=== PATIENT | male | born 1950 | race Caucasian/White ===

== ENCOUNTER → 2016-10-24 | Outpatient (CLI) | payer BC ==
--- NOTE | 2016-10-24 18:01 | ECHOCARDIOGRAM REPORT ---
*NOTICE TO RECEIVING LIBERTARIAN AGENCY This information is strictly Confidential and protected under [place] law. [place] law prohibits you from making any further disclosure of this information unless further disclosure is expressly permitted by the written consent of the person to whom it pertains or is authorized by law. A general authorization for the release of medical or other information is not sufficient for this purpose. Hospital accepts no responsibility if the information is made available to any other person, INCLUDING THE PATIENT. Interpretation Summary * Name: NAE MCKEE Study Date: 10/24/2016 12:34 PM BP: 171/85 mmHg * Patient Location: [facility] HR: 81 * : 1950 (M/d/yyyy) Gender: Male Height: 69 in * Age: 66 yrs Ethnicity: [place] Weight: 200 lb * Ordering Physician: Demarco Lester * Referring Physician: Demarco Lester D.O. * Performed By: Phylicia Knapp RDCS * * Reason For Study: AORTIC STENOSIS * BSA: 2.1 m2 * History: AORTIC STENOSIS * -- Conclusions -- * 1. Normal LV size. Mild to moderate concentric LVH. * 2. Normal LV systolic function. LVEF 60-65%. No regional wall motion abnormalities. * 3. Normal RV size and function. * 4. Grade I diastolic dysfunction. * 5. Mild to moderate aortic stenosis (PV 2.5, MPG 14, BOSSMAN 1.4, DI 0.46) * 6. No prior studies for comparison. Procedure Details * A complete two-dimensional transthoracic echocardiogram was performed (2D, M-mode, Doppler and color flow Doppler). Left Ventricle * The left ventricle is grossly normal size. * There is mild concentric left ventricular hypertrophy. * Ejection Fraction = 60-65%. Right Ventricle * The right ventricle is grossly normal size. * The right ventricular systolic function is normal as assessed by tricuspid annular plane systolic excursion (TAPSE) (normal >1.5 cm). Atria * The left atrial size is normal. * Right atrial size is normal. * There is no evidence of atrial septal defect, but resolution does not allow assessment for a patent foramen ovale. Mitral Valve * The mitral valve is grossly normal. * There is no mitral valve stenosis. * Significant mitral regurgitation is absent. Tricuspid Valve * The tricuspid valve is not well visualized, but is grossly normal. * There is no tricuspid stenosis. * Significant tricuspid regurgitation is absent. Aortic Valve * Calcified, thickened, restricted * The aortic valve is trileaflet. * Mild to moderate valvular aortic stenosis. Great Vessels * The aortic root and proximal ascending aorta are normal sized. Pericardium/Pleural * There is no pericardial effusion. Great Vessels * Normal inferior vena cava size and collapsability with sniff indicates a normal right atrial pressure of 3 mmHg Left Ventricular Diastolic Function * Grade I diastolic dysfunction, (abnormal relaxation pattern). MMode 2D Measurements and Calculations IVSd 1.6 cm IVSs 2.1 cm LVIDd 4.0 cm LVIDs 2.9 cm LVPWd 1.4 cm LVPWs 1.9 cm IVS/LVPW 1.2 FS 28.7 % EDV(Teich) 71.6 ml ESV(Teich) 31.7 ml EF(Teich) 55.8 % EDV(cubed) 65.9 ml ESV(cubed) 23.9 ml EF(cubed) 63.8 % % IVS thick 28.4 % % LVPW thick 37.0 % LV mass(C)d 233.9 grams LV mass(C)dI 113.2 grams/m\S\2 LV mass(C)s 245.6 grams LV mass(C)sI 118.9 grams/m\S\2 SV(Teich) 40.0 ml SI(Teich) 19.4 ml/m\S\2 SV(cubed) 42.0 ml SI(cubed) 20.3 ml/m\S\2 Ao root diam 2.1 cm Ao root area 3.6 cm\S\2 LA dimension 3.6 cm LA/Ao 1.7 LVOT diam 2.0 cm LVOT area 3.0 cm\S\2 LVAd ap4 34.7 cm\S\2 LVLd ap4 8.4 cm EDV(MOD-sp4) 118.5 ml EDV(sp4-el) 121.7 ml LVAs ap4 21.2 cm\S\2 LVLs ap4 7.4 cm ESV(MOD-sp4) 53.6 ml ESV(sp4-el) 51.8 ml EF(MOD-sp4) 54.7 % EF(sp4-el) 57.4 % LVAd ap2 31.3 cm\S\2 LVLd ap2 8.6 cm EDV(MOD-sp2) 97.1 ml EDV(sp2-el) 96.7 ml LVAs ap2 20.0 cm\S\2 LVLs ap2 7.2 cm ESV(MOD-sp2) 48.9 ml ESV(sp2-el) 47.0 ml EF(MOD-sp2) 49.7 % EF(sp2-el) 51.4 % LVLd %diff 2.1 % EDV(MOD-bp) 108.7 ml LVLs %diff -2.36 % ESV(MOD-bp) 51.5 ml EF(MOD-bp) 52.7 % SV(MOD-sp4) 64.9 ml SI(MOD-sp4) 31.4 ml/m\S\2 SV(MOD-sp2) 48.2 ml SI(MOD-sp2) 23.4 ml/m\S\2 SV(MOD-bp) 57.2 ml SI(MOD-bp) 27.7 ml/m\S\2 SV(sp4-el) 69.8 ml SI(sp4-el) 33.8 ml/m\S\2 SV(sp2-el) 49.7 ml SI(sp2-el) 24.1 ml/m\S\2 Doppler Measurements and Calculations MV E max wyatt 52.4 cm/sec MV A max wyatt 65.5 cm/sec MV E/A 0.80 MV dec time 0.30 sec Ao V2 max 252.6 cm/sec Ao max PG 26.2 mmHg Ao max PG (full) 22.2 mmHg Ao V2 mean 169.6 cm/sec Ao mean PG 13.6 mmHg Ao mean PG (full) 11.5 mmHg Ao V2 VTI 47.2 cm BOSSMAN(I,A) 1.4 cm\S\2 BOSSMAN(I,D) 1.4 cm\S\2 BOSSMAN(V,A) 1.2 cm\S\2 BOSSMAN(V,D) 1.2 cm\S\2 LV V1 max PG 4.0 mmHg LV V1 mean PG 2.0 mmHg LV V1 max 99.4 cm/sec LV V1 mean 66.6 cm/sec LV V1 VTI 21.8 cm SV(Ao) 169.4 ml SI(Ao) 82.0 ml/m\S\2 SV(LVOT) 66.5 ml SI(LVOT) 32.2 ml/m\S\2
== END | disposition home or self-care (01) ==
LOC: C.CPL 12:22
PROVIDERS: ATTEND Family Medicine
DX: I35.0 Nonrheumatic aortic (valve) stenosis (principal)

== ENCOUNTER 2018-08-10 08:34 | Inpatient (IN) ==
--- NOTE | 2018-07-14 12:20 | Anesthesiology Consultation ---
Date of Service July 14, 2018 Assessment & Plan (1) Encounter for pre-operative examination: Chart Review Chart Review: Acceptable Risk for Surgery and Patient seen in Pre Admission Testing Consults Requested medical (Dr. Lester (07/16/18)) Per clearance request form. Patient is medically cleared for surgery and "is an acceptable candidate for proposed surgery". Patient had new ECHO done on 08/06 which showed that aortic stenosis is "relatively unchanged with negative cardiac ROS". Teaching & Discussion Pre-Anesthesia Teaching/Discussion Notes: Instructed NPO after midnight before surgery, except medications with 15 cc of water. Medication instructions provided according to the PAT guidelines. History Surgery Operation Date: 08/10/18 11:00 Proposed Procedures p Left Total Knee Arthroplasty - Cezar Dagoberto Dick MD Height/Weight Height: 5 ft 9 in Weight: 90.9 kg Allergies Allergy/AdvReac Type Severity Reaction Status Date / Time shellfish derived AdvReac Intermediate Nausea and Verified 08/10/18 09:11 vomiting Medications Home Medications Medication Instructions Recorded Confirmed Last Taken acetaminophen [Tylenol Extra 2 tabs PO Q6H PRN 07/14/18 08/10/18 Unknown Strength] atorvastatin 10 mg PO HS 07/14/18 08/10/18 08/09/18 19:00 hydrochlorothiazide 25 mg PO QAM 07/14/18 08/10/18 08/09/18 08:30 lisinopril 30 mg PO QAM 07/14/18 08/10/18 08/09/18 08:30 naproxen sodium [Aleve] 2 tabs PO BID PRN 07/14/18 08/10/18 07/27/18 ranitidine HCl 150 mg PO QAM 07/14/18 08/10/18 08/10/18 06:45 Active Medications Generic Name Dose Route Start Last Admin Trade Name Freq PRN Reason Stop Dose Admin Celecoxib 200 mg 08/10/18 06:00 08/10/18 09:28 Celebrex PO 08/10/18 18:00 200 mg PREOP THEE Administration Lactated Ringer's 1,000 mls @ 999 mls/hr 08/10/18 06:00 08/10/18 09:32 Lr IV 08/10/18 18:00 15 mls/hr .Q1H1M THEE Infusion Lactated Ringer's 1,000 mls @ 60 mls/hr 08/10/18 06:00 08/10/18 09:28 Lr IV 08/10/18 22:39 Not Given .[id number] THEE Scopolamine 1.5 mg 08/10/18 06:00 08/10/18 09:28 Transderm-Scop TD 08/10/18 18:00 1.5 mg PREOP THEE Administration Past Medical History Medical History Aortic stenosis Moderate (PV 311 cm/s, MPG 16.7 mmHg, BOSSMAN 1.6 cm2) per ECHO on 08/06/18 Hyperlipidemia Hypertension Cardiac murmur GERD (gastroesophageal reflux disease) Osteoarthritis Past Family History Family History Grandfather (Maternal) Family history of diabetes mellitus Past Surgical History Surgical History History of colonoscopy History of arthroscopy RT KNEE History of left knee surgery History of Achilles tendon repair LEFT History of herniorrhaphy LEFT INGUINAL History of tonsillectomy History of tooth extraction Past Anesthesia History No Hx of Anesthesia Complications and No Family Hx of Anesthesia Complications History of PONV No Motion Sickness Screening History of Motion Sickness: No Social History Smoking Status: Former smoker Do You Dip or Chew Tobacco: Yes (1 can every 3-4 days. 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 Plays golf and tennis when the weather is nice. Able to climb FOS. Denies CP or SOB. ) Review of Systems Patient denies chest pain, shortness of breath, dyspnea on exertion, reflux ( controlled by current medications), cough, wheezing, palpitations. +joint pain (left knee) Physical Exam Vital Signs Last Vital Signs Temp 36.8 C 08/10/18 09:15 Pulse 79 08/10/18 09:15 Resp 22 08/10/18 09:15 BP 174/102 H 08/10/18 09:15 Pulse Ox 98 08/10/18 09:15 BP: 125/74 P: 104 R: 20 T: 98.3 SPO2: 98% on RA ENMT Thyromental Distance: > or= 3.5 Finger Breadths (4) Mallampati Class: II Neck normal visual inspection and trachea midline; neck extension not limited Respiratory normal respiratory effort Auscultation: lungs clear to auscultation bilaterally Cardiovascular Rate/Rhythm: regular rate and regular rhythm Heart Sounds: + murmur (3/6 murmur) Vessels: no carotid bruit Neurologic moves all extremities Psychiatric Orientation: alert and oriented x 3 Testing Electrocardiogram Date: 07/14/18 Findings: + NSR @ (90) Echocardiogram Date: 08/06/18 EF: 65-70% LV Function: normal RWMA: + none Other Findings: + LVH (Moderate concentric ) and + diastolic dysfunction (Grade I.) Moderate (PV 311cm/s, MPG 16.7mmHg, BOSSMAN 1.6 cm2) Small mid cavitary gradient Laboratory Results 07/14/18 12:49 07/14/18 12:49 Blood Type B Positive 07/14/18 12:49 Antibody Screen NEGATIVE 07/14/18 12:49 PT 9.6 Seconds (9.0-12.0) 07/14/18 12:49 INR 0.9 (0.9-1.1) 07/14/18 12:49 APTT 24.0 Seconds (21.0-31.0) 07/14/18 12:49
--- NOTE | 2018-07-14 12:21 | PAT Medication Instructions ---
Medication Instructions Date of Service July 14, 2018 Home Medications acetaminophen [Tylenol] 2 tabs PO Q6H as needed atorvastatin 10 mg PO HS hydrochlorothiazide 25 mg PO QAM lisinopril 30 mg PO QAM naproxen sodium [Aleve] 2 tabs PO BID as needed ranitidine HCl 150 mg PO QAM ASK your surgeon for instructions naproxen sodium [Aleve] 2 tabs PO BID as needed DO NOT take the morning of surgery hydrochlorothiazide 25 mg PO QAM lisinopril 30 mg PO QAM Take morning of surgery With a small sip of water, OTHERWISE NOTHING TO EAT OR DRINK AFTER MIDNIGHT: ranitidine HCl 150 mg PO QAM acetaminophen [Tylenol] 2 tabs PO Q6H as needed Take evening before surgery atorvastatin 10 mg PO HS acetaminophen [Tylenol] 2 tabs PO Q6H as needed Other Notes If you have any questions please call us at [phone] or [phone] or [phone] or [phone]
[2018-07-14 13:34] LABS: Basophils # (auto) 0.09 K/uL (0-0.2); Basophils % (auto) 1.4 %; Eosinophils # (auto) 0.22 K/uL (0-0.5); Eosinophils % (auto) 3.5 %; Hematocrit (blood only) 39.4 % (42-52); Hemoglobin 12.9 g/dL (14.0-18.0); Immature Granulocytes # (auto) 0.04 K/uL (0.00-0.02); Immature Granulocytes % (auto) 0.6 %; Lymphocytes # (auto) 1.72 K/uL (1.2-3.4); Mean Corpuscular Hgb Conc 32.7 g/dL (32-36); Mean Corpuscular Volume 76.5 fL (80-100); Mean Platelet Volume 9.7 fL (7.4-10.4); Monocytes # (auto) 0.85 K/uL (0.11-0.59); Monocytes % (auto) 13.4 %; Neutrophils # (auto) 3.44 K/uL (1.4-6.5); Neutrophils % (auto) 54.1 %; Platelet Count 238 K/uL (130-400); RDW Coefficient of Variation 13.9 % (11.5-14.5); RDW Standard Deviation 38.8 fL (36.4-46.3); Red Blood Count 5.15 M/uL (4.7-6.1); White Blood Count 6.36 K/uL (4.8-10.8)
[2018-07-14 13:44] LABS: INR 0.9 (0.9-1.1); Partial Thromboplastin Ratio 0.9; Prothrombin Time 9.6 Seconds (9.0-12.0)
[2018-07-14 13:49] LABS: Albumin Level 3.8 gm/dl (3.4-5.0); BUN Creatinine Ratio 15.2 (10-20); Bilirubin,Total 0.4 mg/dl (0.2-1); Calcium 9.1 mg/dl (8.5-10.1); Est GFR (African American) 102.8; Est GFR (Non-African American) 88.7; Potassium 4.2 mmol/L (3.5-5.1); Total Protein 7.7 gm/dl (6.4-8.2)
[2018-07-14 13:50] LABS: Bilirubin Direct 0.1 mg/dl (0-0.2)
[~2018-08-10 08:34] MED LIST: BUPIVACAINE 0.5 % 5 MG/1 ML PF 10ML VIAL ONE; BUPIVACAINE/EPINEPHRINE 0.5% MPF 1:200,000 30 ML VIAL ONE; CEFAZOLIN 2000MG 2,000 MG/15 ML SYR IV SCH; CeleBREX 200 MG CAP PO SCH; LR 60ML/HR IV SCH; ROPIVACAINE 0.5% HCL/PF 150 MG, BUPIVACAINE 0.5% MPF 30 ML, EPINEPHrine 0.15 MG, Ketoro... INFIL SCH; SCOPOLAMINE 1.5 MG TDSY TD SCH; TRANEXAMIC ACID 1,000 MG **IV Intra-op IV SCH; TRANEXAMIC ACID 1,000 MG **IV Pre-op IV SCH
[2018-08-10] MEDS: LR 500ML BOLUS, THEN 15ML/HR IV SCH ×6 (09:10→17:42)
[2018-08-10] MEDS ORDERED: MIDAZOLAM HCL 1 MG/ML 2ML VIAL ONE ×3 (09:18→11:53)
[2018-08-10] MEDS ORDERED: fentaNYL citrate 100 MCG/2 ML VIAL ONE ×2 (09:18→12:14)
--- NOTE | 2018-08-10 09:44 | History & Physical Bridge Note ---
Date of Service August 10, 2018 History & Physical Bridge Note I have examined the patient, reviewed the History & Physical and in the interval since the performance of the History & Physical I have noted the following changes of clinical significance: no changes noted
[2018-08-10] MEDS ORDERED: ORTHO JOINT ANESTHETIC ONE (09:53)
[2018-08-10] MEDS ORDERED: LIDOCAINE HCL 2% 2 ML VIAL/AMP(20MG/ML) INFIL ONE (11:32)
[2018-08-10] MEDS ORDERED: DEXAMETHASONE SOD INJ 4 MG/ML VIAL ONE (11:32)
[2018-08-10] MEDS ORDERED: ONDANSETRON INJ 2 MG/ML 2 ML VIAL ONE (11:32)
[2018-08-10] MEDS ORDERED: PHENYLEPHRINE HCL 10 MG/ML VIAL ONE (11:32)
[2018-08-10] MEDS ORDERED: PROPOFOL IV EMULSION 10 MG/ML 20 ML VIAL IV ONE ×3 (11:32→13:21)
--- NOTE | 2018-08-10 13:48 | Post Operative Brief Note ---
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
--- NOTE | 2018-08-10 13:49 | Operative Report ---
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 Outerbridge Type IV changes of all 3 compartments. Fluids 1600 cc Specimens Left knee Contents Drains n/a Anesthesia Type Spinal Complications none Indications This is a 67-year-old male who has clinical and radiographic findings consistent with osteoarthritis of the a left knee and varus alignment. I recommended that a left total knee replacement be performed. The patient understands the risks of surgery, which include but not limited to: bleeding, infection, re-operation, damage to nerves and arteries, continued knee pain, knee stiffness, DVT, and . The patient understands all of these instructions and explanations, all of his questions have been satisfactorily addressed and the patient has elected to proceed. Informed consent was signed. Description of Procedure IMPLANTS: 1. Femur: Triathlon #5 Left PS. 2. Tibia: Triathlon #6 [place] with 12 x 50 mm stem. 3. Insert: Triathlon #6 x 11 mm PS X3 poly. 4. Patella: Triathlon A38 x 11 mm X3 poly. 5. Simplex cement. Procedure: The patient was taken to the Operating Room and placed in the supine position after spinal and adductor canal nerve block was administered. My initials and a multidisciplinary time-out were used to identify the left leg as the correct operative limb. A tourniquet was placed high in the thigh. Prior to the incision, 2 grams of intravenous Ancef were given. The left leg was then prepped and draped in a standard sterile fashion. An Esmarch was used to exsanguinate the leg and the tourniquet was inflated to 250 mmHg. The planned mid-line 20 cm incision was created exposing the extensor mechanism. The medial parapatellar arthrotomy was made and the patella was everted. The patella was addressed first. It was prepared by reaming from 27 mm down to 16 mm. An A38 button was found to fit best. The peg holes were made in the standard fashion. There were some calcifications from previous Sandro slaughters that were removed from the undersurface of the patellar tendon. The femur was addressed next and the guide angélica was placed intramedullary. The initial cutting block was placed with 5 degrees of valgus and removing 10 mm for the anterior cut. The cut was made and the 4-in-1 cutting block for a size 5 femur was placed. These cuts and the cuts to place the box were made in the standard fashion. Several loose bodies were noted posterior to the lateral femoral condyle and intercondylar notch medially. Our attention was then drawn to the tibia cut with the external cutting guide, taking 2 mm from the medial low side. There was sufficient extension and flexion gap to fit a 11 mm spacer. A #6 Tibial baseplate fit well. A trial with a 11 mm spacer showed excellent stability in both flexion and extension, with good ligament balance. Range of motion of 0-120 degrees. The tibial baseplate was pinned and the final preparation for the keel and stem was made. A stem was used to avoid subsidence. The popliteus tendon was repaired with 0 Vicryl with a modified Tolentino stitch. All the trial components were tested again, with good stability and thumbs free tracking of the patella. All components were removed. The tourniquet was deflated. Hemostasis was obtained. 90 ml of total knee cocktail were injected into the soft tissues and periosteum. A bone plug was placed in the femur and covered with bone wax. After a 15 minute break, the limb was exsanguinated again and the tourniquet was re-inflated. All surfaces were copiously irrigated prior to placement of the components. The femoral component and Tibial baseplate were placed with the first batch of cement and a 11 mm trial placed. During the second batch of cement the patellar button was placed using Simplex cement. Once the cement had cured, the 11 mm X3 poly was placed. The extensor mechanism was closed with 1-0 and 0 Vicryl with the knee bent approximately 60 degrees in a standard fashion. The peritenon and deep fascia was closed with 2-0 Vicryl. The subcutaneous layer was closed with 3-0 Vicryl. The skin was closed with Zipline. The limb was cleaned and dried. 4x4 dressing was placed over top followed by ABDs, sterile Webril, and a foot to thigh Michael bandage. The patient was then transferred to the Recovery Room in stable condition. The sponge and needle counts were correct. POST-OP INSTRUCTIONS: The patient will be WBAT. The patient will be admitted to the hospital. The patient will use the knee immobilizer when ambulating and standing until good quad control is achieved. Labs will be obtained during her stay. DVT prophylaxis will included Lovenox for 3 weeks then switching to aspirin for 3 more weeks, TEDs, and mechanical foot pumps. The dressing will be changed prior to their discharge or postop day #2 and covered with a Silverlon dressing , whichever comes first. I attest to the content of the Intraoperative Record and any orders documented therein. Any exceptions are noted below.
[2018-08-10] MEDS ORDERED: METOCLOPRAMIDE HCL INJ 5 MG/ML 2 ML VIAL IV PRN (13:55)
[2018-08-10] MEDS ORDERED: BISACODYL 10 MG SUPP PR PRN (13:55)
[2018-08-10] MEDS ORDERED: DiphenhydrAMINE HCL 50 MG/ML VIAL IV PRN (13:55)
[2018-08-10] MEDS ORDERED: ACETAMINOPHEN 500 MG TAB PO PRN (13:55)
[2018-08-10] MEDS ORDERED: ONDANSETRON INJ 2 MG/ML 2 ML VIAL IV PRN (13:55)
[2018-08-10] MEDS ORDERED: NALOXONE HCL 0.4 MG/1 ML VIAL/CARP IV PRN (13:55)
[2018-08-10] MEDS ORDERED: ALUMINUM/MAGNESIUM SUSP 30 ML UDC PO PRN (13:55)
[2018-08-10] MEDS ORDERED: MAGNESIUM HYDROXIDE SUSP 30 ML UDC PO PRN (13:55)
[2018-08-10] MEDS ORDERED: HYDROmorphone INJ 1 MG/ML SYRINGE IV PRN (14:01)
--- NOTE | 2018-08-10 14:19 | XRay Report ---
XR knee LT 2V routine CLINICAL HISTORY: Surgical Post Op COMPARISON: Leg length study June 09, 2018. FINDINGS: Alignment of the total left knee arthroplasty is anatomic. There is no periprosthetic frac ture or unexpected radiopaque foreign body. A lucency through the base of a spur at the tibial tuberc le is chronic and unchanged since exam of June 09, 2018. IMPRESSION: Expected findings following total left knee arthroplasty. Electronically signed by: Jemal Boyer M.D. 08/10/2018 2:17 PM
--- NOTE | 2018-08-10 14:31 | Anesthesiology Progress Note ---
Date of Service August 10, 2018 Anesthesia Post Procedure Vital Signs Vital Signs: Temp Pulse Pulse Resp BP BP Pulse Ox 08/10/18 14:20 70 22 115/81 95 08/10/18 14:10 85 20 123/82 94 08/10/18 14:00 87 26 H 120/80 98 08/10/18 13:54 36.0 C L 82 20 98/66 L 96 08/10/18 09:15 36.8 C 79 22 174/102 H 98 Notes Mental Status: alert / awake / arousable and participated in evaluation Patient Amnestic to Procedure: Yes Nausea / Vomiting: adequately controlled Pain: adequately controlled Airway Patency, RR, SpO2: stable & adequate BP & HR: stable & adequate Hydration State: stable & adequate Anesthetic Complications: no major complications apparent and Pt Satisfied with anesthetic care
[2018-08-10] MEDS ORDERED: LISINOPRIL 10 MG TAB PO STA (14:51)
[2018-08-10] MEDS: OXYCODONE HCL IR 5 MG TAB (IMMEDIATE RELEASE) PO PRN ×2 (15:13→20:38)
[2018-08-10] MEDS: CHECK SCOPOLAMINE PATCH PLACEMENT SCH ×2 (15:23→23:55)
--- NOTE | 2018-08-10 15:24 | Operative Report ---
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 Description of Procedure See Dr Dick operative report for full details. I was airline pilot/first officer during entire case including prepping, draping, limb and instrument handling, wound closure, dressings. I attest to the content of the Intraoperative Record and any orders documented therein. Any exceptions are noted below.
[2018-08-10] MEDS ORDERED: INFLUENZA ADMINISTRATION CHARGE ONE (16:00)
[2018-08-10] MEDS ORDERED: INFLUENZA VIRUS QUAD VACCINE 0.5 ML SYR IM ONE (17:00)
[2018-08-10] MEDS: SODIUM CHLORIDE 0.9% 1000ML 1,000 ML IV SCH ×2 (17:08→17:33)
--- NOTE | 2018-08-10 17:09 | Orthopedic Progress Note ---
Date of Service August 10, 2018 Assessment & Plan (1) History of total knee replacement: POD # 0, S/P L TKA Elevated blood pressure. Will consult hospitalist for medical management. WBAT with walker and Immobilizer. Use Immobilizer for 48 hours or until demonstrates good quad control. PT/OT. elevate & Ice. Immobilizer only for ambulation. Check labs in am. DVT prophylaxis: TEDs and foot pumps while in hospital, start Lovenox 30 mg subq BID 08/11/18 in am continue for 3 weeks, then switch to ASA 325 mg PO BID for another 3 weeks. Will change dressing to Silverlon before discharge. Regular diet. D/C planning. Present on Admission?: No Physical Exam 2 Vital Signs (Past 24 Hours): Last Vital Signs Temp 36.5 C 08/10/18 15:15 Pulse 67 08/10/18 16:53 Resp 16 08/10/18 16:53 BP 161/99 H 08/10/18 16:53 Pulse Ox 97 08/10/18 16:53 Physical Exam: LLE: Dressing clean, dry, intact. Calf soft, non-tender. Results & Data Diagnostic Findings X-Rays: Show good position of Left TKA components.
--- NOTE | 2018-08-10 17:23 | Internal Medicine Consult Note ---
Date of Consultation August 10, 2018 Assessment & Plan (1) Hypertension: Patient typically takes lisinopril 30 hydrochlorothiazide 25 these, the patient was given 30 postoperatively stat to make up for the missed doses this morning. We will also have available IV hydralazine if need be over the night otherwise patient stable (2) Aortic stenosis: (3) GERD (gastroesophageal reflux disease): We will continue his Zantac at 150 History of Present Illness Attending Physician: Cezar Dick MD History of Present Illness Patient seen postoperatively he is coming by his family is no complaints or problems his pain is well controlled he was given additional dose of his lisinopril postoperatively Allergies Allergy/AdvReac Type Severity Reaction Status Date / Time shellfish derived AdvReac Intermediate Nausea and Verified 08/10/18 09:11 vomiting Home Medications Home Medications Medication Instructions Recorded Confirmed Type acetaminophen [Tylenol Extra 2 tabs PO Q6H PRN 07/14/18 08/10/18 History Strength] atorvastatin 10 mg PO HS 07/14/18 08/10/18 History hydrochlorothiazide 25 mg PO QAM 07/14/18 08/10/18 History lisinopril 30 mg PO QAM 07/14/18 08/10/18 History naproxen sodium [Aleve] 2 tabs PO BID PRN 07/14/18 08/10/18 History ranitidine HCl 150 mg PO QAM 07/14/18 08/10/18 History Patient History Family History Grandfather (Maternal) Family history of diabetes mellitus Social History Current Living Situation: Alone Other Information That Helps Us Care for You: No Feels Safe at Home: Yes Safety Concerns: Feels Safe At This Time Smoking Status: Former smoker Do You Dip or Chew Tobacco: Yes (1 can every 3-4 days. (Advised)) Smoking End Date: QUIT 15 YEARS AGO (1/2-1ppd x 5 years) Hx Alcohol Use: Yes Alcohol type: beer Alcohol Intake Frequency: a few times a week Hx Substance Use: No Beliefs That Will Affect Care: None Preferred Language: Montenegrin Communication Ability: Effective Guest Relations Associate Required: No Review of Systems ROS: well nourished well developed. No double vision blurry vision No problems with speech or swallowing No palpitations, chest pain or pressure patient did have his aortic stenosis rechecked prior to the surgery and was cleared by his primary care No Wheezing or breathing issues No abdominal pain nausea vomiting diarrhea changes in appetite or weight No burning urine urine frequency or changes in color Appropriate postoperative joint pain No skin rashes or oral lesions No unusual bruising or bleeding No focused back pain or numbness or loss of strength No changes in memory or confusion Physical Exam 2 Vital Signs (Past 24 Hours): Last Vital Signs Temp 36.5 C 08/10/18 15:15 Pulse 67 08/10/18 16:53 Resp 16 08/10/18 16:53 BP 161/99 H 08/10/18 16:53 Pulse Ox 97 08/10/18 16:53 The patient appeared well nourished and normally developed. Vital signs as documented blood pressure was elevated postoperatively Head exam is unremarkable. normocephalic, atraumatic Neck is without jugular venous distension, thyromegaly, or lymphademopathy Lungs are clear to auscultation and percussion. Cardiac exam reveals Rhythm is regular. Systolic murmur consistent with known aortic stenosis first and second heart sounds normal. Abdominal exam reveals normal bowel sounds, no masses, no organomegaly Extremities are nonedematous and both pedal pulses are present Neurologic exam is A&Ox3, good distal capillary refill and sensation Psychologically seems neither anxious or depressed Skin is warm Dry without bruises or lesions
[2018-08-10] MEDS: CEFAZOLIN 2000MG 2,000 MG/15 ML SYR IV SCH (17:34)
[2018-08-10] MEDS: ASCORBIC ACID 500 MG TAB PO SCH (17:41)
[2018-08-10] MEDS: FERROUS GLUCONATE 324 MG TAB PO SCH (17:41)
[2018-08-10] MEDS ORDERED: HydrALAZINE HCL 20 MG/ML VIAL IV PRN (17:45)
[2018-08-10] MEDS: DOCUSATE SODIUM 100 MG CAP PO SCH (20:39)
[2018-08-10] MEDS ORDERED: SENNA 8.6 MG TAB PO SCH (21:00)
[2018-08-10] MEDS ORDERED: ATORVASTATIN 10 MG TAB PO SCH (21:00)
[2018-08-11] MEDS: CEFAZOLIN 2000MG 2,000 MG/15 ML SYR IV SCH (02:24)
[2018-08-11] MEDS: OXYCODONE HCL IR 5 MG TAB (IMMEDIATE RELEASE) PO PRN ×3 (02:32→12:11)
[2018-08-11] MEDS ORDERED: Nursing to Pharmacy Communication ONE (05:05)
[2018-08-11] MEDS: SODIUM CHLORIDE 0.9% 1000ML 1,000 ML IV SCH (05:07)
[2018-08-11 05:59] LABS: Hematocrit (blood only) 31.3 % (42-52); Hemoglobin 10.4 g/dL (14.0-18.0); Mean Corpuscular Hgb Conc 33.2 g/dL (32-36); Mean Corpuscular Volume 76.2 fL (80-100); Mean Platelet Volume 9.1 fL (7.4-10.4); Platelet Count 206 K/uL (130-400); RDW Coefficient of Variation 13.9 % (11.5-14.5); RDW Standard Deviation 38.7 fL (36.4-46.3); Red Blood Count 4.11 M/uL (4.7-6.1); White Blood Count 15.02 K/uL (4.8-10.8)
[2018-08-11 06:26] LABS: Calcium 8.3 mg/dl (8.5-10.1); Est GFR (African American) 90.5; Est GFR (Non-African American) 78.1; Potassium 4.1 mmol/L (3.5-5.1)
[2018-08-11] MEDS: FERROUS GLUCONATE 324 MG TAB PO SCH (07:55)
[2018-08-11] MEDS: ASCORBIC ACID 500 MG TAB PO SCH (07:55)
[2018-08-11] MEDS ORDERED: ENOXAPARIN INJ 30 MG/0.3 ML SYR SQ SCH (08:00)
--- NOTE | 2018-08-11 08:40 | Orthopedic Progress Note ---
Date of Service August 11, 2018 Assessment & Plan (1) History of total knee replacement: POD # 1, S/P L TKA Elevated blood pressure. Will consult hospitalist for medical management. WBAT with walker and Immobilizer. Use Immobilizer for 48 hours or until demonstrates good quad control. PT/OT. elevate & Ice. Immobilizer only for ambulation. DVT prophylaxis: TEDs and foot pumps while in hospital, Lovenox 30 mg subq BID started this AM, continue for 3 weeks, then switch to ASA 325 mg PO BID for another 3 weeks. Will change dressing to Silverlon later this afternoon. Tolerating regular diet. Patient would like to go home later today, pending PT. He would like to go home with in home PT. All questions answered, will discuss findings with Dr. Dick. Appreciate medicine assistance with BP. I, Dr. Dick, saw and examined the patient and discussed the management with my PA. I reviewed my PAs note and agree with the documented findings and the plan of care I developed. (2) Acute blood loss anemia: Monitor, no need for transfusion at this time Asymptomatic Will discharge home on Iron and Vit C Present on Admission?: No Subjective Doing well, mild pain today, states took awhile for pain medication. Sitting out of bed in chair. Tolerating regular diet. Denies chest pain, shortness of breath, lightheadedness, dizziness. Dressings had to be reinforced twice last night. Wearing immobilizer. Blood pressure improving. Physical Exam 2 Vital Signs (Past 24 Hours): Last Vital Signs Temp 36.4 C L 08/11/18 07:38 Pulse 67 08/11/18 07:38 Resp 18 08/11/18 07:38 BP 154/80 H 08/11/18 07:38 Pulse Ox 92 08/11/18 07:38 Physical Exam: left knee dressings intact, reinforced, no bloody drainage visualized at this time. Distal N/V intact. Toes warm, Strength 5/5 LLE. Able to independently SLR. Tolerates left hip ROM. Results & Data Laboratory Results 08/11/18 08/11/18 Range/Units 05:39 05:39 WBC 15.02 H (4.8-10.8) K/uL RBC 4.11 L (4.7-6.1) M/uL Hgb 10.4 L (14.0-18.0) g/dL Hct 31.3 L (42-52) % MCV 76.2 L (80-100) fL MCH 25.3 (25-34) pg MCHC 33.2 (32-36) g/dL RDW Std Deviation 38.7 (36.4-46.3) fL RDW Coeff of Corby 13.9 (11.5-14.5) % Plt Count 206 (130-400) K/uL MPV 9.1 (7.4-10.4) fL Sodium 132 L (136-145) mmol/L Potassium 4.1 (3.5-5.1) mmol/L Chloride 100 (98-107) mmol/L Carbon Dioxide 26 (21-32) mmol/L Anion Gap 6.0 (3-11) BUN 16 (7-18) mg/dl Creatinine 1.00 (0.6-1.4) mg/dl Est Cr Clr Drug Dosing 81.0 ml/min Est GFR ( Amer) 90.5 Est GFR (Non-Af Amer) 78.1 BUN/Creatinine Ratio 16.0 (10-20) Glucose 138 H (70-99) mg/dl Calcium 8.3 L (8.5-10.1) mg/dl Diagnostic Findings XR knee LT 2V routine CLINICAL HISTORY: Surgical Post Op COMPARISON: Leg length study June 09, 2018. FINDINGS: Alignment of the total left knee arthroplasty is anatomic. There is no periprosthetic fracture or unexpected radiopaque foreign body. A lucency through the base of a spur at the tibial tubercle is chronic and unchanged since exam of June 09, 2018. IMPRESSION: Expected findings following total left knee arthroplasty.
[2018-08-11] MEDS: DOCUSATE SODIUM 100 MG CAP PO SCH (08:59)
[2018-08-11] MEDS ORDERED: LISINOPRIL 10 MG TAB PO SCH (09:00)
[2018-08-11] MEDS ORDERED: hydroCHLOROthiazide 25 MG TAB PO SCH (09:00)
[2018-08-11] MEDS ORDERED: MULTIVITAMIN TAB PO SCH (09:00)
--- NOTE | 2018-08-11 13:01 | Orthopedic Progress Note ---
Date of Service August 11, 2018 Assessment & Plan (1) History of total knee replacement: POD # 1, S/P L TKA Blood pressue improved. Appreciate medical management input. Dressings changed to silvalone. 2 ABDs placed over top and Michael applied. Patient can remove in 24hours. Silvalon remains on until f/u appointment. Abdulaziz hose placed on LLE. Already donned on RLE. WBAT with walker and Immobilizer. Use Immobilizer for 48 hours or until demonstrates good quad control. Continue with elevate & Ice. DVT prophylaxis: TEDs and foot pumps while in hospital, Lovenox 30 mg subq BID started this AM, continue for 3 weeks, then switch to ASA 325 mg PO BID for another 3 weeks. D/C order placed. Can go home after lunch with home PT. All questions answered. I, Dr. Dick, saw and examined the patient and discussed the management with my PA. I reviewed my PAs note and agree with the documented findings and the plan of care I developed. (2) Acute blood loss anemia: Monitor, no need for transfusion at this time Asymptomatic Will discharge home on Iron and Vit C Subjective Patient seen with Dr Dick, He is doing well. Daughter in room. Ready to go home. Tolerated PT without complaints. Pain controlled. Regular diet. Able to void. No CP, SOB, lightheadedness. BP was 147/82. Improved. Seen by Medicine. Physical Exam 2 Vital Signs (Past 24 Hours): Last Vital Signs Temp 36.8 C 08/11/18 11:07 Pulse 92 H 08/11/18 11:07 Resp 17 08/11/18 11:07 BP 147/82 H 08/11/18 11:07 Pulse Ox 100 08/11/18 11:07 Physical Exam: Left knee dressings removed. Patient had dry blood as well as some saturation thru dressings. No active bleeding. Zip line intact. Incision intact. Able to do a SLR. B calves soft. Neg wilber. 5/5 B EHL, TA. Palpable DP and PT pulses. 2+ left knee effusion. 1+ left leg swelling. No swelling R LE. Results & Data Laboratory Results 08/11/18 08/11/18 Range/Units 05:39 05:39 WBC 15.02 H (4.8-10.8) K/uL RBC 4.11 L (4.7-6.1) M/uL Hgb 10.4 L (14.0-18.0) g/dL Hct 31.3 L (42-52) % MCV 76.2 L (80-100) fL MCH 25.3 (25-34) pg MCHC 33.2 (32-36) g/dL RDW Std Deviation 38.7 (36.4-46.3) fL RDW Coeff of Corby 13.9 (11.5-14.5) % Plt Count 206 (130-400) K/uL MPV 9.1 (7.4-10.4) fL Sodium 132 L (136-145) mmol/L Potassium 4.1 (3.5-5.1) mmol/L Chloride 100 (98-107) mmol/L Carbon Dioxide 26 (21-32) mmol/L Anion Gap 6.0 (3-11) BUN 16 (7-18) mg/dl Creatinine 1.00 (0.6-1.4) mg/dl Est Cr Clr Drug Dosing 81.0 ml/min Est GFR ( Amer) 90.5 Est GFR (Non-Af Amer) 78.1 BUN/Creatinine Ratio 16.0 (10-20) Glucose 138 H (70-99) mg/dl Calcium 8.3 L (8.5-10.1) mg/dl
--- NOTE | 2018-08-11 15:30 | Hospitalist Progress Note ---
Date of Service August 11, 2018 Assessment & Plan (1) Hypertension: Patient typically takes lisinopril 30 hydrochlorothiazide 25 these, the patient was given 30 postoperatively stat to make up for the missed doses this morning. His blood pressure is assessed acceptable this morning he has no complaints or problems of chest pain or shortness of breath he is stable for disposition per the orthopedics choice. Orthopedics has chosen Lovenox for DVT prevention (2) Aortic stenosis: (3) GERD (gastroesophageal reflux disease): We will continue his Zantac at 150 (4) Acute blood loss anemia: Asymptomatic no need for transfusion Subjective Patient has no complaints or problems this morning expecting to go home was coming by his daughter at bedside Review of Systems ROS: well nourished well developed. No double vision blurry vision No problems with speech or swallowing No palpitations, chest pain or pressure No Wheezing or breathing issues No abdominal pain nausea vomiting diarrhea changes in appetite or weight No burning urine urine frequency or changes in color Despite the postoperative knee pain No skin rashes or oral lesions No unusual bruising or bleeding No focused back pain or numbness or loss of strength No changes in memory or confusion Physical Exam 2 Vital Signs (Past 24 Hours): Last Vital Signs Temp 36.8 C 08/11/18 13:47 Pulse 63 08/11/18 13:47 Resp 17 08/11/18 13:47 BP 154/80 H 08/11/18 13:47 Pulse Ox 100 08/11/18 13:47 The patient appeared well nourished and normally developed. Vital signs as documented. Head exam is unremarkable. normocephalic, atraumatic Neck is without jugular venous distension, thyromegaly, or lymphademopathy Lungs are clear to auscultation and percussion. Cardiac exam reveals Rhythm is regular. Systolic murmur is present and documented previously, first and second heart sounds normal. Abdominal exam reveals normal bowel sounds, no masses, no organomegaly Extremities are nonedematous and both pedal pulses are present Neurologic exam is A&Ox3, no focal deficits, strength is equal bilateral Psychologically seems neither anxious or depressed Skin is warm Dry without bruises or lesions
--- NOTE | 2018-08-12 13:52 | Discharge Summary ---
Date of Service August 11, 2018 Principal Diagnosis Left Knee Osteoarthritis Discharge Data Allergies Allergy/AdvReac Type Severity Reaction Status Date / Time shellfish derived AdvReac Intermediate Nausea and Verified 08/10/18 09:11 vomiting Consultations 08/10/18 13:56 Consult Case Management - Discharge Planning Routine 08/10/18 16:58 Consult Hospitalist Routine Procedures Performed Operation Date: 08/10/18 11:00 Actual Procedures p Left Total Knee Arthroplasty(Left) - Cezar Dagoberto Dick MD Ordered Studies 08/10/18 05:00 US - OR guided needle placemen Routine 08/10/18 10:07 US - OR guided needle placemen Routine Hospital Course (1) History of total knee replacement: Patient admitted to hospital after undergoing a left total knee replacement by Dr Dick on 08-10-18. He received a spinal anesthetic. Ancef 2g IV. Surgery without complication. POD O: Blood pressure somewhat elevated. Consult placed for medicine. Medication was adjusted. Dressings were reinforced for saturation. ASHLEY hose and foot pumps for DVT prophylaxis. Ancef 2g q8hrs X 24hrs. Tolerated. POD 1: Lovenox for DVT prophylaxis. Blood pressure improved. Pain controlled. Tolerated PO fluids. Regular diet. Able to void. Tolerated AM session of PT. Patient deemed appropriate for DC to home with home health PT. Patients dressing were changed to a silvalone which should remain on until f/u. Reinforced with ABD and Michael which can be removed in 24hrs. He is to use knee immobilizer with ambulation for first 48hrs after surgery. Continue with walker. DVT prophylxis with lovenox 30mg SQ BID x 3wks then ASA 325mg BID x 3wks. Continue ASHLEY hose to LLE. Once home can d/c to RLE. Scripts for oxycodone, vit c, iron were given. Patient also can also take tylenol for pain. To restart all medication other than anti-inflammatories. Patient advised to call if he had any questions or concerns. Otherwise f/u in 2wks. (2) Acute blood loss anemia: Asymptomatic. No need for blood transfusion. Sent home on PO iron. Total Time Total Time Spent Total Time Spent (In Minutes): 20min Discharge Plan Discharge Items Patient Disposition: Home - Home Health Services Reason For Visit: Left Knee Osteoarthritis Discharge Diagnosis: Left Knee Osteoarthritis Condition: Good Discharge Goals: Decrease discomfort, Improve function and Increase independence Activity: Per 'Additional Instructions' section Bathing: Keep incision dry Bathing Comment: keeping silvalone dressing on until follow-up appointment Exercise/Sports: Wait until after follow-up appointment Driving/Machine Use Comment: you cannot drive while on narcotics and using a walker Weightbearing: Left weightbearing Weightbearing Comment: as tolerated with assistance of a waker Non-emergency contact: Surgeon Call non-emergency contact if: you have any medication questions, your pain is not controlled, your pain is worsening, your pain is concerning for you, you have a fever, your temperature is above 101, your wound has increased redness, your wound has increased drainage and your wound pain has increased Follow-up/Referrals: Demarco Lester DO [Primary Care Provider] - Renny Hernandez PA-C [Physician Confectionery Maker] - 08/23/18 11:00 am Diet: Regular Addtl Provider Instructions: Post-operative Instructions Pain Expect to be in a fair amount of pain after surgery. Remember, our goal is not to eliminate your pain, but to make it tolerable. It is a good idea to stay ahead of your pain by taking the medications you were prescribed once you get home. Typically, the pain starts improving 3-7 days after surgery. You should start weaning off the narcotic pain medication (oxycodone) as soon as your pain improves. You can use tylenol as an adjunct for pain that is mild to moderate. This doesn't interefere with the oxycodone. Please call our office if your pain is not adequately controlled. Ice Ice your operative site at least 5 times a day for 15-30 minutes at a time. Make sure you have a thin cloth between the ice or cooling unit and your skin to prevent hart bite. This is especially important if you received a nerve block. Continue icing your operative site for the first 5-7 days after surgery , then as needed. Diet/Nausea/Vomiting Start by drinking clear liquids and eating crackers. If you can tolerate this, then you may resume your normal diet. Please call our office if you have intractable nausea or vomiting, or, if after hours, you may go to the Emergency Room for help. We can prescribe something to help with this. Constipation Constipation is a common side effect of narcotic pain medication. If you have not had a bowel movement within 2 days after surgery, we recommend purchasing an over the counter laxative such as Milk of Magnesia, Dulcolax, or Miralax from a local pharmacy, and taking it as instructed. Call our clinic if any questions. Slings and Braces Knee immobilizer for first 48hrs after surgery when ambulating. Weight bearing and Range of Motion. Weight bear as tolerated to your left leg with walker for assistance. Range of motion should be gradual as tolerated. No restrictions on motion. Physical therapy Initially home health physical thereapy. You will be given a prescription for outpatient physical therapy at your first post-operative appointment. Wound care and showering We will inspect your wound at your first post-operative visit, and may do a dressing change at that time. Most patients will be in a water-proof dressing that is removed 14 days after surgery. It is normal to see some dried blood on the dressing. Showering is allowed the day after surgery. Do not scrub or remove any dressings. The wound should not be submerged underwater (i.e. in a bathtub or pool) until 4 weeks after surgery You may remove the MICHAEL bandage once you get home. You can leave the silvalone dressings exposed. It doesn't need to be covered. ASHLEY stockings If you were given white stockings, these are to be worn at all times during the day to the operative leg X 2 weeks. You can remove to shower and sleep. Driving You may not drive while taking narcotic pain medication or while in a cast, splint, sling or brace. You, the patient, need to make the final determination about when you are safe to drive, however, the earliest you may consider driving after surgery is below: Hip,/Knee/Ankle Surgery: 4 weeks Return to Work Your return to work depends on what surgery was done and what type of work you do. Please bring any paperwork your employer needs completed to your first post -operative visit. Also, bring a description of your job duties, as this helps us to understand what risks you may face at work. Travel Avoid long distance travel (greater than 1 hour) in airplanes and cars for the first 4 weeks after surgery. If you must travel, you need to take frequent rest breaks to stand and stretch. Follow-up You should have a follow-up appointment already scheduled 2 weeks after surgery. If not, please contact our office to make this appointment before you leave the hospital. When to call the office It is normal to have swelling and bruising in the limb that was operated on. This will improve with time. It is also normal to have fevers for the first 2 days after surgery. Reasons you should call your doctor include: Uncontrolled pain; Nausea, vomiting, or constipation that does not improve with medication; Fevers over 101.5, chills, sweats; Drainage or bleeding from the wound; Foul odor; Spreading areas of redness; Any other concerns NEW MEDICATIONS: VITAMIN C LOVENOX FERROUS GLUCONATE (IRON) OXYCODONE Prescriptions: New enoxaparin [Lovenox] 30 mg/0.3 mL Syringe 30 mg subcut Q12H 21 Days Qty: 42 RF: 0 ferrous gluconate 324 mg (38 mg iron) Tablet 324 mg PO BIDM 14 Days Qty: 28 RF: 0 ascorbic acid (vitamin C) [Vitamin C] 500 mg Tablet 500 mg PO BIDM 14 Days Qty: 28 RF: 0 oxycodone 5 mg Tablet 5 - 10 mg PO Q4H PRN (Reason: pain) Qty: 30 RF: 0 Continue atorvastatin 10 mg Tablet 10 mg PO HS RF: 0 acetaminophen [Tylenol Extra Strength] 500 mg Tablet 2 tabs PO Q6H PRN (Reason: Pain) RF: 0 ranitidine HCl 150 mg Tablet 150 mg PO QAM RF: 0 lisinopril 30 mg Tablet 30 mg PO QAM RF: 0 hydrochlorothiazide 25 mg Tablet 25 mg PO QAM RF: 0 Discontinued naproxen sodium [Aleve] 220 mg Tablet 2 tabs PO BID PRN (Reason: Pain) RF: 0 Stand-Alone Forms: [facility], Opioid Pain Management Discharge Orders: Discharge Order (Routine); Ordered 08/11/18 Ordered By: Mary Kay Reyes Admission Data Admit Date/Time: 08/10/18 13:56 Attending Provider: Cezar Dick Admit Provider: Cezar Dick Primary Care Provider: Demarco Lester Other Providers: Balaji Sarmiento Service: Surgical Services Other Interventions: Discharge Summary Assessment (RN) Last Done: 08/11/18 13:47 Pending Studies at Discharge: No DC Date/Time DO NOT enter until pt leaves facility: 08/11/18 14:41
== END 2018-08-11 14:41 | disposition home health service (06) | DRG 470 ==
LOC: ASU 08:34 → 3E 13:56
DX: M17.0 Bilateral primary osteoarthritis of knee; K21.9 Gastro-esophageal reflux disease without esophagitis; E78.5 Hyperlipidemia, unspecified; Z51.81 Encounter for therapeutic drug level monitoring; Z79.899 Other long term (current) drug therapy; I10 Essential (primary) hypertension; M21.162 Varus deformity, not elsewhere classified, left knee; Z83.3 Family history of diabetes mellitus; D62 Acute posthemorrhagic anemia; Z91.013 Allergy to seafood; F17.220 Nicotine dependence, chewing tobacco, uncomplicated